=== PATIENT | female | born 1965 ===

== ENCOUNTER → 2022-12-26 | Outpatient (CLI) | payer OTHER ==
[~2022-12-26] VITALS: Ht 162.6 cm; Wt 108.9 kg
[~2022-12-26] MED LIST: SYNTHROID300 MCG PO
== END | disposition home or self-care (01) ==
LOC: LAB 08:00 → ADM 08:15 → EDSTATUS 12-29 08:15 → CIR.AMB 12-29 08:15
PROVIDERS: ATTEND Orthopaedic Surgery
DX: M75.22 Bicipital tendinitis, left shoulder (principal); M75.122 Complete rotator cuff tear or rupture of left shoulder, not specified as traumatic; M24.112 Other articular cartilage disorders, left shoulder